=== PATIENT | female | born 1960 | race Caucasian/White ===

== ENCOUNTER 2025-07-25 10:15 | Outpatient (CLI) | payer OTHER, SELFPAY ==
--- OUTSIDE RECORDS SUMMARY | 2025-05-31 09:45 | XMS_ITS | Encounter Summary ---
Author Organization [facility] Address [address] [place] [address] Care Team Providers Care Aerodynamics Professor Name Role Phone Nicholas Mlaik MD Primary Care Provider [phone] Reason for Visit * Physical Therapy (Routine) - Authorization Not Needed Specialty Diagnoses / Procedures Referred By Contac t Referred To Contact Physical Therapy Diagnoses Spondylolisthesis of lumbar region Murtaza Warner MD [address] [place] [phone] Phone: tel: fax: [facility] [address] [address] Phone: tel: fax: Referral ID Status Reason Start Date Expiration Date Visits Requested Visits Authorized [id number] Authorization Not Needed 05/03/2025 08/31/2025 1 20 Encounter Details Date Type Department Care Team (Late st Contact Info) Description 05/31/2025 10:45 AM EDT Office Visit [facility] [address] [address] Robert Reyes, PT [address] [place] [address] Spondylolisthesis of lumbar region (Primary Dx) Social History Tobacco Use Types Packs/Day Years Used Date Smoking Tobacco: Every Day Cigarettes 0.6 51.6 Started: 1973; Last attempted to quit: 07/2020 Passive Smoke Exposure: Past Smokeless Tobacco: Never Comments: Smoking history updated per QT chart review 07/30/2024 Pt smokes 0.25. Patient states she started smoking at age 14 and at her heaviest smoked 1.5ppd. Patient states she quit 3 weeks ago around last hospitalization.08/02/19 Alcohol Use Standard Drinks/Week Comments No 0 (1 standard drink = 0.6 oz pur e alcohol) Overall Financial Resource Strain (CARDIA) Answe r Date Recorded How hard is it for you to pa y for the very basics like food, housing, medical care, and heating? Not very hard 02/15/2023 PHQ-2 Answer Date Recorded PHQ-2 Total Score 0 04/20/2024 [facility]at ional [facility] - Occupational Stress Questionnaire Answer Date Recorded Do you feel stress - tense, restless, nervous, or anxious, or unable to sleep at night because your mind is troubled all the time - these days? Only a little 04/03/2022 Exercise Vital Sign Answer Date Recorde d On average, how many days pe r week do you engage in moderate to strenuous exercise (like a brisk walk)? 0 days 02/15/2023 On average, how many minutes do you engage in exercise at this level? 0 min 02/15/2023 Hunger Vital Sign Answer Date Recorded Within the past 12 months, y ou worried that your food would run out before you got the money to buy more. Never true 02/16/20 23 Within the past 12 months, t he food you bought just didn't last and you didn't have money to get more. Never true 02/15/2023 PRAPARE - Transportation Answer Date Re corded In the past 12 months, has l ack of transportation kept you from medical appointments or from getting medications? No 01/30 In the past 12 months, has l ack of transportation kept you from meetings, work, or from getting things needed for daily living? No 02/15/2023 Comments No Sex and Gender Information Value Date Recorded Sex Assigned at Not on file Legal Sex Female 2:44 AM EDT Gender Identity Not on file Sexual Orientation Not on file documented as of this encounter Functional Status * Is the person deaf or does he/she have serious difficulty hearing? Answer Date of Assessment Author No 10/07/2022 9:07 AM EST Mcgill, A my, RMA * Is the person blind or does he/she have serious difficulty seeing even when wearing glasses? Answer Date of Assessment Author No 10/07/2022 9:07 AM EST Mcgill, A my, RMA * Does this person have serious difficulty walking or climbing stairs? Answer Date of Assessment Author No 10/07/2022 9:07 AM EST Mcgill, A my, RMA * Does this person have difficulty dressing or bathing? Answer Date of Assessment Author No 10/07/2022 9:07 AM EST Mcgill, A my, RMA * Because of a physical, mental or emotional condition, does this person have difficulty doing errands alone such as visiting a doctor's office or shopping? Answer Date of Assessment Author No 10/07/2022 9:07 AM EST Mcgill, A my, RMA documented as of this encounter Mental Status * Because of a physical, mental or emotional condition, does this person have serious difficulty concentrating, remembering or making decisions? Answer Entry Date Author No 10/07/2022 9:07 AM EST Mcgill, A my, RMA documented in this encounter Progress Notes * Jesus Garcia, MUSIC COPYIST - 05/31/2025 10:45 AM EDT Images from the original note were not included. Physical Therapy Daily Progress Note 05/31/2025 Morelia Viera : 1960 Referring Provider: Murtaza Warner MD Next MD visit: unk Encounter Diagnosis Name Primary? Spondylolisthesis of lumbar region Yes Surgery Date: na Onset date: chronic Contraindications/Precautions: none Visit: 12/19 Time In: 10:45a Time Out: 11:15a Subjective: Pt state sthat she is the same, not improving Se grid Treatment Treatment Date 05/10/2025 Date 05/17/2025 Date 05/24/2025 Date 05/31/2025 TA 5 15x 5 x15 5 x15 home bridge 5 15x 5 x15 5 x15 5 x15 LTR 10 x 5 ea 10 x 5 ea 10 x 5 ea ltr abs 2' ea knee to chest 10 x 5 ea 10 x5ea 10 x5ea 10 x5 seated october TA 20x2 20x2 20x2 20x2 hooklying clamshell org x30 hooklying clamshell org x30 hooklying clamshell light green x30 STS from elevated at table with TA 2x5 d/c pain seated pallof press light green x10ea st pallof press x20ea shoulder ext org 2x10 shoulder ext org 2x10 Modalities Measurements Charges eval te nmr te nmr te nmr te nmr HEP ID: Access Code: [email or web address] URL: [email or web address] Date: 05/10/2025 Prepared by: Lorenzo Reyes Exercises - Supine Transversus Abdominis Bracing - Hands on Stomach - 2 x daily - 7 x weekly - 15 reps - 5sechold - Supine Bridge - 2 x daily - 7 x weekly - 15 reps - 5sec hold - Hooklying Single Knee to Chest Stretch - 2 x daily - 7 x weekly - 5 reps - 10sec hold - Supine Lower Trunk Rotation - 2 x daily - 7 x weekly - 5 reps - 10sec hold - Seated October - 2 x daily - 7 x weekly - 30 reps Treatment today included: Timed Units: Therapeutic exercise: 15 minutes Neuromuscular Re-education: 15 minutes Total Time for Timed Treatments: 30 minutes Untimed Units: None Patient's Tolerance of Evaluation and/or Treatment: Fair Response to HEP instruction/patient education: The patient verbalized understanding and demonstrated independence with home exercise program. Assessment: Pt not improving with core stab exercises. Potential referral back to MD after next visit if pain continues Plan: Continue current plan of care. Signature: Jesus Garcia PTA Date: 05/31/2025 [place] License: [id number] documented in this encounter Plan of Treatment Not on file documented as of this encounter Goals Goal Patient Goal Type Associated Problems Recent Progress Patient-Stated? Author Blood Pressure < 140/90 Blood Pressure 152/70(2024 4:20 PM EDT) No Nicholas Malik MD Maintain a healthy diet, exercise regularly and maintain an ideal body weight General No Siomara Burger CCMA Stay Tobacco Free Lifestyle No Burger, Siomara Devora, CCMA documented as of this encounter Visit Diagnoses Diagnosis Spondylolisthesis of lumbar region- Primary Acquired spondylolisthesis documented in this encounter Care Teams Aerodynamics Professor Relationship Specialty Start Date End Date Nicholas Malik MD [address] [facility] [address] [place], [place] [address] PCP - General Family Medicine 01/14/23 07/19/25 documented as of this encounter
--- OUTSIDE RECORDS SUMMARY | 2025-06-07 09:45 | XMS_ITS | Encounter Summary ---
Author Organization [facility] Address [address] [place] [address] Care Team Providers Care Traffic Signal Supervisor Maintenance Name Role Phone Nicholas Malik MD Primary Care Provider [phone] Reason for Visit * Physical Therapy (Routine) - Authorization Not Needed Specialty Diagnoses / Procedures Referred By Contac t Referred To Contact Physical Therapy Diagnoses Spondylolisthesis of lumbar region Murtaza Warner MD [address] [place] [id number] Phone: tel: fax: [facility] [address] [address] Phone: tel: fax: Referral ID Status Reason Start Date Expiration Date Visits Requested Visits Authorized [id number] Authorization Not Needed 05/03/2025 08/31/2025 1 20 Encounter Details Date Type Department Care Team (Late st Contact Info) Description 06/07/2025 10:45 AM EDT Office Visit [facility] [address] [facility] [address] [place] [address] Robert Reyes, PT [address] [place] [address] Spondylolisthesis of lumbar region (Primary [...] Date Recorded PHQ-2 Total Score 0 04/20/2024 [facility] Occupat ional Health - Occupational Stress [...] documented in this encounter Progress Notes * Robert Reyes, PT - 06/07/2025 10:45 AM EDT Images from the original note were not included. Physical Therapy Daily Progress Note 06/07/2025 Morelia Viera : 1960 Referring Provider: Murtaza Warner MD Next MD visit: unk Encounter Diagnosis Name Primary? Spondylolisthesis of lumbar region Yes Surgery Date: na Onset date: chronic Contraindications/Precautions: none Visit: 01/18 Time In: 10:30a Time Out: 10:55a Subjective: Pt states that she is the same. Exercises are not helping. She is trying to do them as much as her pain allows See grid Treatment Treatment Date 05/17/2025 Date 05/24/2025 Date 05/31/2025 06/07/2025 TA 5 x15 5 x15 home bridge 5 x15 5 x15 5 x15 5 x15 LTR 10 x 5 ea 10 x 5 ea ltr abs 2' ea 10 x5ea knee to chest 10 x5ea 10 x5ea 10 x5 10 x5 seated october TA 20x2 20x2 20x2 hooklying clamshell org x30 hooklying clamshell org x30 hooklying clamshell light green x30 hooklying clamshell light green x30 STS from elevated at table with TA 2x5 d/c pain seated pallof press light green x10ea st pallof press x20ea st pallof press x20ea shoulder ext org 2x10 shoulder ext org 2x10 shoulder ext light green 2x10 Modalities Measurements Charges te nmr te nmr te nmr te nmr HEP ID: Access Code: [email or web address] URL: [email or web address] Date: 05/10/2025 Prepared by: Lorenzo Reyes Exercises [...] Units: Therapeutic exercise: 15 minutes Neuromuscular Re-education: 10 minutes Total Time for Timed Treatments: 25 minutes Untimed Units: None Patient's Tolerance of Evaluation and/or Treatment: Excellent Response to HEP instruction/patient education: The patient verbalized understanding and demonstrated independence with home exercise program. Assessment: Pt not making progress at this time despite consistent HEP and physical therapy. Pt hasfailed conservative management at this time and referred back to MD for further diagnostics at MD discretion. Plan: refer back to Signature: Robert Reyes PT Date: 06/07/2025 [place] License: [id number] documented in this encounter Plan of Treatment Not on file documented as of this encounter Goals Goal Patient Goal Type Associated Problems Recent Progress Patient-Stated? Author Blood Pressure < 140/90 Blood Pressure 152/70(2024 4:20 PM EDT) No Nicholas Malik MD Maintain a healthy diet, exercise regularly and maintain an ideal body weight General No Siomara Burger CCMA Stay Tobacco Free Lifestyle No Siomara Burger CCMA documented as of this encounter Visit Diagnoses Diagnosis Spondylolisthesis of lumbar region- Primary Acquired spondylolisthesis documented in this encounter Care Teams Traffic Signal Supervisor Maintenance Relationship Specialty Start Date End Date Nicholas Malik MD [address] [place] [address] [place] [address] PCP - General Family Medicine 01/14/23 07/19/25 documented as of this encounter
--- OUTSIDE RECORDS SUMMARY | 2025-06-13 15:00 | XMS_ITS | Encounter Summary ---
Author Organization [facility] Address [address] [id number] Care Team Providers Care Acid Remover Name Role Phone Nicholas Malik MD Primary Care Provider [phone] Reason for Referral * MRI/CAT Scan (Routine) - AFF Authorized Specialty Diagnoses / Procedures Referred By Tg mckee Referred To Contact Orthopedic Surgery Diagnoses Spondylolisthesis of lumbar region Degeneration of intervertebral disc of lumbar region with discogenic back pain Lumbar pain Procedures MRI LUMBAR SPINE WO CONTRAST Murtaza Warner MD [address] [place] [address] Phone: tel: fax: [facility] [address] [address] Phone: tel: fax: Referral ID Status Reason Start Date Expiration Date Visits Requested Visits Authorized [id number] AFF Authorized 06/13/2025 06/13/2026 1 1 Reason for Visit * Reason Comments Follow-up Encounter Details Date Type Department Care Team (Latest Contact Info) Description 06/13/2025 4:00 PM EDT [facility] Visit [facility] [address] [address] Murtaza Warner MD [address] [place] [address] Spondylolisthesis of lumbar region (Primary Dx); Degeneration of intervertebral disc of lumbar region with discogenic back pain; Lumbar pain Social History Tobacco Use Types Packs/Day Years [...] documented in this encounter Progress Notes * Murtaza Warner MD - 06/13/2025 4:00 PM EDT Images from the original note were not included. Murtaza Warner MD Sports Medicine and Asbestos Pipe Supervisor DATE OF VISIT: 06/13/25 CHIEF COMPLAINT Chief Complaint Patient presents with Lower Back - Follow-up HPI Follow-up on her back. Ongoing axial lumbosacral pain, chronic and worsening. No radiation into thelegs. I had ordered an MRI scan to plan interventional treatment however her insurance company denied it.She has completed her physical therapy without results PREVIOUS TREATMENT 05/10/2025 initial PT visit, multiple visits 01/29/2024 left sacroiliac joint injection, fluoroscopic guided PAST MEDICAL HISTORY Obesity Tobacco use Bilateral TKA COPD Vitamin D deficiency PHYSICAL EXAM Bilateral seated slump test cause axial low back pain Very limited lumbar range of motion RADIOLOGY/PROCEDURES 01/13/2024 4 view L-spine including flexion, extension x-rays: Moderate to advanced multilevel DDD with a listhesis 4/5 ASSESSMENT Chronic low back pain L DDD Lumbar spondylolisthesis PLAN Lumbar MRI with clinical follow-up, we will use that to plan intervention. DME Summary No orders found for display documented in this encounter Plan of Treatment [...] Burger CCMA documented as of this encounter Results * MRI LUMBAR SPINE WO CONTRAST (06/30/2025 12:00 PM EDT) Narrative [facility] - 06/30/2025 12:00 PM EDT Please see the scanned MRI report associated with this order on the Imaging tab of the patient's chart. Murtaza Warner MD IMG MRI ORDERABLES Final Result [facility] documented in this encounter Visit Diagnoses Diagnosis Spondylolisthesis of lumbar region- Primary Acquired spondylolisthesis Degeneration of intervertebral disc of lumbar region with discogenic back pain Lumbar pain Lumbago documented in this encounter Care Teams Acid Remover Relationship Specialty Start Date End Date Nicholas Malik MD [address] [place] [address] [address] [place], [place] [address] PCP - General Family Medicine 01/14/23 07/19/25 documented as of this encounter
--- OUTSIDE RECORDS SUMMARY | 2025-06-30 10:30 | XMS_ITS | Encounter Summary ---
Author Organization [facility] Address [address] [place] [address] Care Team Providers Care Mba Intern Name Role Phone Nicholas Malik MD Primary Care Provider [phone] Reason for Visit * MRI/CAT Scan (Routine) - AFF Authorized Specialty Diagnoses / Procedures Referred By Tg mckee Referred To Contact Orthopedic Surgery Diagnoses Spondylolisthesis of lumbar region Degeneration of intervertebral disc of lumbar region with discogenic back pain Lumbar pain Procedures MRI LUMBAR SPINE WO CONTRAST Murtaza Warner MD [address] [place] [address] Phone: tel: fax: [facility] [address] [place] [address] Phone: tel: fax: Referral ID Status Reason Start Date Expiration Date Visits Requested Visits Authorized [id number] AFF Authorized 06/13/2025 06/13/2026 1 1 Encounter Details Date Type Department Care Team (Late st Contact Info) Description 06/30/2025 11:30 AM EDT Ancillary Procedure [facility] [address] [place] [address] Murtaza Warner MD [address] [place] [address] Social History Tobacco Use Types Packs/Day Years [...] Date Recorded PHQ-2 Total Score 0 04/20/2024 [facility] of Occupat ional Health - Occupational Stress [...] A my, RMA documented in this encounter Plan of Treatment [...] Burger CCMA documented as of this encounter Procedures Procedure Name Priority Date/Time Associated Diagnosis Comments MRI LUMBAR SPINE WO CONTRAST Routine 06/30/2025 12:00 PM EDT Spondylolisthesis of lumbar region Degeneration of intervertebral disc of lumbar region with discogenic back pain Lumbar pain documented in this encounter Results * MRI LUMBAR SPINE WO CONTRAST (06/30/2025 12:00 PM EDT) Narrative [facility] - 06/30/2025 12:00 PM EDT Please see the scanned MRI report associated with this order on the Imaging tab of the patient's chart. us Murtaza Warner MD IMG MRI ORDERABLES Final Result Performing Organization Address City/State/[facility] Co de Phone Number [facility] documented in this encounter Visit Diagnoses Not on filedocumented in this encounter Care Teams Mba Intern Relationship Specialty Start Date End Date Nicholas Malik MD [address] [place] [address] [place] [address] PCP - General Family Medicine 01/14/23 07/19/25 documented as of this encounter
--- OUTSIDE RECORDS SUMMARY | 2025-06-30 12:00 | XMS_ITS | Encounter Summary ---
Author Organization [facility] Address [address] [place] [address] Care Team Providers Care Hearing Impaired Teacher Name Role Phone Nicholas Malik MD Primary Care Provider [phone] Reason for Referral * In Office Procedure (Routine) - Denied Specialty Diagnoses / Procedures Referred By Tg mckee Referred To Contact Orthopedic Surgery Diagnoses Spondylolisthesis of lumbar region Procedures [facility] PROCEDURE UNDER FLUORO Murtaza Warner MD [address] [place] [address] Phone: tel: fax: [facility] [address] [address] Phone: tel: fax: Referral ID Status Reason Start Date Expiration Date Visits Re quested Visits Authorized [id number] Denied 06/30/2025 06/30/2026 1 0 Reason for Visit * Reason Comments Results Encounter Details Date Type Department Care Team (Latest Contact Info) Description 06/30/2025 1:00 PM EDT Office Visit [facility] [address] [employer] [address] [address] Murtaza Warner MD [address] [place] [address] Spondylolisthesis of lumbar region (Primary Dx) Social [...] Date Recorded PHQ-2 Total Score 0 04/20/2024 [facility] of Occupat ional Health - Occupational [...] Date Author No 10/07/2022 9:07 AM EST Artem A my, RMA documented in this encounter Progress Notes * Murtaza Warner MD - 06/30/2025 1:00 PM EDT Images from the original note were not included. Murtaza Warner MD Sports Medicine and Certified Nurse Midwife DATE OF VISIT: 06/30/25 CHIEF COMPLAINT Chief Complaint Patient presents with Lower Back - Results HPI Had her MRI scan done just today. She is here today in follow-up. PREVIOUS TREATMENT 05/10/2025 initial PT visit, multiple visits 01/29/2024 left sacroiliac joint injection, fluoroscopic guided Prior ablation PAST MEDICAL HISTORY Obesity Tobacco use Bilateral TKA COPD Vitamin D deficiency PHYSICAL EXAM Deferred RADIOLOGY/PROCEDURES 06/30/2025 lumbar MRI, [facility]: Greatest finding is at L4-5 with mild listhesis, moderate facet arthritis. Multilevel DDD 01/13/2024 4 view L-spine including flexion, extension x-rays: Moderate to advanced multilevel DDD with a listhesis 4/5 ASSESSMENT Chronic low back pain L DDD Lumbar spondylolisthesis, L4-5 PLAN Proceed with translaminar L4/5, 5 inch needle. She may need an ablation if this does not help. DME Summary No orders found for display [...] Primary Acquired spondylolisthesis documented in this encounter Orders Nursing Count Last Ordered Date First Orde red Date [facility] PROCEDURE UNDER FLUORO 1 025 documented in this encounter Care Teams Hearing Impaired Teacher Relationship Specialty Start Date End Date Nicholas Malik MD [address] [place] [address] [address] [place], [place] [address] PCP - General Family Medicine 01/14/23 07/19/25 documented as of this encounter
[2025-07-25 16:12] LABS: Hematocrit 42.1 % (37.0-47.0); Hemoglobin 13.5 g/dL (12.2-16.2); Immature Granulocytes % 1.9 %; Mean Corpuscular HGB Conc 32.1 g/dL (31.8-35.4); Mean Corpuscular Hemoglobin 30.5 pg (27.0-31.2); Mean Corpuscular Volume 95.2 fl (81-99); Nucleated Red Blood Cells % 0 %; Platelet Count 349 K/mm3 (142-424); Red Blood Count 4.42 M/mm3 (4.20-5.40); Red Cell Distribution Width-SD 47.2 fL; White Blood Count 13.2 K/mm3 (4.8-10.8)
[2025-07-25 16:51] LABS: Albumin Level 3.8 g/dl (3.5-5.0); Chloride 99 mmol/L (98-107); Potassium 3.6 mmoL/L (3.5-5.1); Sodium 141 mmol/L (136-145)
[2025-07-25 16:53] LABS: Blood Urea Nitrogen 18 mg/dl (7-17); Creatinine,Serum 0.90 mg/dl (0.52-1.04); Estimated Glomerular Filt Rate 63 ml/min (>60); GFR (African American) 76 ML/MIN (>60)
[2025-07-25 16:54] LABS: Alanine Aminotransferase 25 U/L (12-78); Albumin/Globulin Ratio 1.3 (1.1-1.8); Alkaline Phosphatase 111 U/L (38-126); Anion Gap 11.6 mEq/L (5-15); Aspartate Amino Transferase 23 U/L (14-36); Bilirubin,Total 0.3 mg/dl (0.2-1.3); Calcium 9.2 mg/dl (8.4-10.2); Carbon Dioxide 34 mmol/L (22.0-30.0); Cholesterol 121 mg/dl (140-200); Globulin 3.0 g/dL (1.3-3.2); Glucose 102 mg/dl (74-100); Total Protein,Serum 6.8 g/dl (6.3-8.2); Triglycerides 81 mg/dl (30-150)
[2025-07-25 16:55] LABS: HDL Cholesterol 52 mg/dl (40-60)
[2025-07-25 17:09] LABS: Hemoglobin A1C 6.2 % (4.0-6.0)
[2025-07-25 17:12] LABS: T4 (Thyroxine) 10.6 ug/dl (5.53-11.0)
[2025-07-25 17:25] LABS: Thyroid Stimulating Hormone 1.55 uIU/mL (0.465-4.68)
[2025-07-25 18:35] LABS: 25-OH Vitamin D, Total 29.7 ng/mL (30-100)
--- OUTSIDE RECORDS SUMMARY | 2025-07-26 08:22 | XMS_ITS | Encounter Summary ---
Author Organization [facility] Address [address] [place] [address] Care Team Providers Care Project Analyst Name Role Phone Nicholas Malik MD Primary Care Provider [phone] Encounter Details Date Type Department Care Team (Late st Contact Info) Description 05/04/2025 Telephone [facility] [address] [place] [address] Murtaza Warner MD [address] [place], [place] [id number] Social History Tobacco Use Types Packs/Day Years [...] Date Recorded PHQ-2 Total Score 0 04/20/2024 [facility] of Occupat ional Health - Occupational Stress [...] of Assessment Author No 10/07/2022 9:07 AM Fabio Prince RMA * Is the person blind or does he/she have serious difficulty seeing even when wearing glasses? Answer Date of Assessment Author No 10/07/2022 9:07 AM Fabio Prince, RMA * Does this person have serious difficulty walking or climbing stairs? Answer Date of Assessment Author No 10/07/2022 9:07 AM Fabio Prince RMA * Does this person have difficulty dressing or bathing? Answer Date of Assessment Author No 10/07/2022 9:07 AM Fabio Prince, RMA * Because of a physical, mental or emotional condition, does this person have difficulty doing errands alone such as visiting a doctor's office or shopping? Answer Date of Assessment Author No 10/07/2022 9:07 AM Fabio Prince RMA documented as of this encounter Mental Status * Because of a physical, mental or emotional condition, does this person have serious difficulty concentrating, remembering or making decisions? Answer Entry Date Author No 10/07/2022 9:07 AM Fabio Prince RMA documented in this encounter Miscellaneous Notes * Telephone Encounter - Dasha Benítez, Clerical Staff - 05/04/2025 8:40 AM EDT CALLED SPOKE WITH PATIENT, LET HER KNOW THAT SHE NEEDS TO GO TO PHYSICAL THERAPY ONCE A WEEK FOR SIX WEEKS THEN REACH OUT TO US WHEN THAT IS COMPLETED SO WE CAN RESUBMIT MRI TO INSURANCE. * Telephone Encounter - Tresa Goff, Clerical Staff - 05/04/2025 8:36 AM EDT Pt said she can only go to PT 1 x/week or she is not going to be able to walk. She wanted to know if Ins would be ok her going 1x a week for 6 wks so she can get an MRI after that. Please advise documented in this encounter Plan of Treatment [...] documented as of this encounter Visit Diagnoses Not on filedocumented in this encounter Care Teams Project Analyst Relationship Specialty Start Date End Date Nicholas Malik MD [address] [place] [address] [address] [place], [place] [address] PCP - General Family Medicine 01/14/23 07/19/25 documented as of this encounter
--- OUTSIDE RECORDS SUMMARY | 2025-07-26 08:23 | XMS_ITS | Encounter Summary ---
Author Organization [facility] Address [address] [place] [address] Care Team Providers Care Director Advanced Name Role Phone Nicholas Malik MD Primary Care Provider [phone] Reason for Visit * Reason Onset Date Comments Prior Authorization 07/05/2025 Encounter Details Date Type Department Care Team (Late st Contact Info) Description 07/05/2025 Telephone [facility] [address] [place] [address] Murtaza Warner MD [address] [place] [address] Prior Authorization Social History Tobacco Use Types Packs/Day Years [...] Date Recorded PHQ-2 Total Score 0 04/20/2024 [facility] - Occupational Stress [...] Prince RMA * Does this person have serious difficulty walking or climbing stairs? Answer Date of Assessment Author No 10/07/2022 9:07 AM Fabio Prince RMA * Does this person have difficulty dressing or bathing? Answer Date of Assessment Author No 10/07/2022 9:07 AM Fabio Prince RMA * Because of a physical, mental or emotional condition, does this person have difficulty doing errands alone such as visiting a doctor's office or shopping? Answer Date of Assessment Author No 10/07/2022 9:07 AM HUI McgillFabio my, RMA documented as of this encounter Mental Status * Because of a physical, mental or emotional condition, does this person have serious difficulty concentrating, remembering or making decisions? Answer Entry Date Author No 10/07/2022 9:07 AM HUI McgillFabio my, RMA documented in this encounter Miscellaneous Notes * Telephone Encounter - Dasha Benítez, Clerical Staff - 07/05/2025 8:12 AM ESTSummary: ALISTAIR Denial Called spoke with patient. She is scheduled for a bilateral L4/5 translaminar ALISTAIR on 07/07/2025. [facility] is denying her injection due her note not saying how far her pain goes. Patient informs me that her pain goes from her low back to her upper thigh just below her butt cheek. I told her that I will resubmit to her insurance and we will go from there. Patient did complete 5 weeks of physical therapy, she was discharged due to not making progress at this time despite consistent HEP and physical therapy. Patient has failed conservative management at this time and referred back to MD for further diagnostics at MD discretion. documented in this encounter Plan of Treatment [...] on filedocumented in this encounter Care Teams Director Advanced Relationship Specialty Start Date End Date Nicholas Malik MD [address] [place] [address] [place] [address] PCP - General Family Medicine 01/14/23 07/19/25 documented as of this encounter
--- OUTSIDE RECORDS SUMMARY | 2025-07-26 08:23 | XMS_ITS | Encounter Summary ---
Author Organization [place] [address] Care Team Providers Care Spanish Moss Picker Name Role Phone Buck Snyder MD Primary Care Provider Jason Valencia MD Primary Care Provider Unavail able Rafaela Mandujano RN Unavailable Rafaela Shabazz RN Unavailable Kinza Shen Unavailable Unavailable Natalya Lopez Unavailable Unavailable Kinza Booth Unavailable Unavailable Nicholas Malik MD Primary Care Provider [phone] Reason for Visit * Reason Onset Date Comments Bone Health Program 10/30/2017 Encounter Details Date Type Department Care Team (Late st Contact Info) Description 10/30/2017 Patient Outreach [facility] [address] [place] [address] Buck Snyder MD Bone Health Program Social History Tobacco Use Types Packs/Day Years Used Date Smoking Tobacco: Every Day Cigarettes 0.5 20 Smokeless Tobacco: Never Alcohol Use Standard Drinks/Week Comments No 0 (1 standard drink = 0.6 oz pur e alcohol) Comments No Sex and Gender Information Value Date Recorded Sex Assigned at Not on file Legal Sex Female 2:44 AM EDT Gender Identity Not on file Sexual Orientation Not on file documented as of this encounter Miscellaneous Notes * Telephone Encounter - Lynette Barros, Clerical Staff - 10/30/2017 11:28 AM EST We were unable to contact patient about scheduling a bone density study.sent letter documented in this encounter Plan of Treatment Not on file documented as of this encounter Goals Goal Patient Goal Type Associated Problems Recent Progress Patient-Stated? Author Maintain a healthy diet, exercise regularly and maintain an ideal body weight General No Siomara Burger CCMA Stay Tobacco Free Lifestyle No Siomara Burger CCMA documented as of this encounter Visit Diagnoses Not on filedocumented in this encounter Additional Health Concerns Infection Onset Date Last Indicated Resolved Time R/O COVID-19 04/20/2022 04/20/2022 04/20/2022 6:34 AM EDT R/O COVID-02/15/2023 02/15/2023 02/15/2023 3:37 PM EDT COVID-02/15/2023 02/15/2023 03/07/2023 10:1 2 PM EDT documented as of this encounter Care Teams Spanish Moss Picker Relationship Specialty Start Date End Date Buck Snyder MD PCP - General Family Medicine 01/24/16 03/24/18 Jason Pascal MD PCP - General Family Medicine 03/25/18 01/13/23 Nicholas Malik MD [address] [place] [address] [place] [address] PCP - General Family Medicine 01/14/23 07/19/25 Rafaela Mandujano, [employer] Glass Polisher Registered Nurse 06/29/19 07/25/19 Rafaela Mandujano, [employer] Glass Polisher Registered Nurse 07/28/19 10/11/19 Kinza Booth Respiratory Therapist Respiratory Therapist, Registered 04/03/22 04/03/22 Natalya Lopez Case Babbitt Spinner 04/03/22 05/01/22 Kinza Booth Respiratory Therapist Respiratory Therapist, Registered 04/22/22 06/10/22 documented as of this encounter
--- OUTSIDE RECORDS SUMMARY | 2025-07-26 08:23 | XMS_ITS | Encounter Summary ---
Author Organization [place] [address] Care Team Providers Care Silviculture Forester Name Role Phone Nicholsa Malik MD Primary Care Provider [phone] Reason for Visit * Reason Onset Date Comments Medication Refill [facility] Patient [facility] Outreach 07/17/2025 med refill 30 Encounter Details Date Type Department Care Team (Late st Contact Info) Description 07/17/2025 Refill [facility] [address] [place] [id number] Nicholas Malik MD [address] [place] [address] [place] [address] Medication Refill; Central Patient Navigator Outreach (med refill 30) Social History Tobacco Use Types Packs/Day Years [...] Date Recorded PHQ-2 Total Score 0 04/20/2024 [facility] - Occupational Stress Questionnaire Answer Date Recorded [...] Assessment Author No 10/07/2022 9:07 AM EST Fabio Mcgill RMA documented as of this encounter Mental Status * Because of a physical, mental or emotional condition, does this person have serious difficulty concentrating, remembering or making decisions? Answer Entry Date Author No 10/07/2022 9:07 AM Fabio Prince RMA documented in this encounter Ordered Prescriptions Prescription Sig Dispense Quantity Refills Last Filled Start Date End Date pantoprazole (PROTONIX) 40 mg Oral Tablet, Delayed Release (E.C.)Indications:G astroesophageal reflux disease, unspecified whether esophagitis present TAKE 1 TABLET BY MOUTH EVERY DAY 30 Tablet 07/20/2025 documented in this encounter Miscellaneous Notes * Telephone Encounter - Shelbie Jaramillo - 07/20/2025 9:09 AM EST Patient Outreach: Medication refill appointment, ilene count: Med Refill 30 Primary Care Attempt Count: 1st Care Gaps Addressed youth liaison officer: Annual Wellness Visit and Flu Shot Outcome: Sees PCP outside of [facility]. Encouraged Pt to update info with insurance. [facility] Provider removedfrom chart. Call back number: [phone] * Telephone Encounter - Stacia Luna CPhT - 07/20/2025 7:54 AM EST pantoprazole Future Visit: na Last Assessed Visit: na Follow-Up: [facility] Appointment protocol failed. One ilene supply sent to pharmacy. Routed to Patient Navigators. documented in this encounter Plan of Treatment Not on file documented as of this encounter Goals Goal Patient Goal Type Associated Problems Recent Progress Patient-Stated? Author Blood Pressure < 140/90 Blood Pressure 152/70(2024 4:20 PM EDT) No Nicholas Malik MD Maintain a healthy diet, exercise regularly and maintain an ideal body weight General No Siomara Burger CCMA Stay Tobacco Free Lifestyle No Jennyfer Siomara Devora, CCMA documented as of this encounter Visit Diagnoses Diagnosis Gastroesophageal reflux disease, unspecified whether esophagitis present documented in this encounter Discontinued Medications Medication Sig Discontinue Reason Start Date End Da te pantoprazole (PROTONIX) 40 mg Oral Tablet, Delayed Release (E.C.)Indications:Gastroe sophageal reflux disease, unspecified whether esophagitis present TAKE 1 TABLET BY MOUTH EVERY DAY 04/11/2025 07/20/2025 documented as of this encounter Care Teams Silviculture Forester Relationship Specialty Start Date End Date Nicholas Malik MD [address] [place] [address] [address] [place], [place] [address] PCP - General Family Medicine 01/14/23 07/19/25 documented as of this encounter
--- OUTSIDE RECORDS SUMMARY | 2025-07-26 08:23 | XMS_ITS | Clinical Summary ---
Author Organization [facility] Address [address] [place] [address] Phone Care Team Providers Care Manager Competitive Intelligence Name Role Phone Unavailable Primary Care Provider Unavailabl e Allergies Active Allergy Reactions Criticality Noted Date Comments Aspirin Rash 03/18/2016 nauseated GERD Codeine Itching,Nausea Only,Rash,Hives 12/18/2015 Nsaids (Non-Steroidal Anti-Inflammatory Drug) Nausea Only 12/18/2015 Aspirin and Ibuprofen GERD Tramadol Nausea Only,Rash 12/18/2015 GERD Medications nalOXone (NARCAN) 4 mg/actuation Nasl [place], Non-Aerosol 0.1 mL by INTRANASAL route as needed for Opioid Reversal. 1 Each 023 Active albuterol (PROVENTIL) 2.5 mg /3 mL (0.083 %) Inhl Solution for NebulizationIndic ations:COPD, moderate (HCC) Take 3 mL by nebulization every 4 hours as needed for Wheezing. 180 mL 2 023 Active umeclidinium-zaki nteroL (ANORO ELLIPTA) 62.5-25 mcg/actuation Inhl Disk with DeviceIndications :COPD, moderate (HCC) INHALE 1 PUFF BY MOUTH EVERY DAY 180 Each 024 Active albuterol (PROVENTIL HFA;VENTOLIN HFA) 90 mcg/actuation Inhl HFA Aerosol InhalerIndication s:COPD, moderate (HCC) Inhale 2 Puffs into the lungs every 4 hours as needed for Wheezing. 18 Each 2 024 Active doxepin (SINEQUAN) 10 mg Oral Capsule Take 10 mg by mouth nightly. 025 Active hydrOXYzine (VISTARIL) 25 mg Oral Capsule Take 25 mg by mouth 3 times daily as needed. 025 Active buprenorphine-nal oxone (SUBOXONE) 4-1 mg SL Film PLEASE SEE ATTACHED FOR DETAILED DIRECTIONS 025 Active fUROsemide (LASIX) 20 mg Oral TabletIndications :Left leg swelling Take 1 Tablet by mouth daily as needed. 30 Tablet 11 025 Active atorvastatin (LIPITOR) 20 mg Oral TabletIndications :Mixed hyperlipidemia TAKE 1 TABLET BY MOUTH EVERY DAY 100 Tablet 2 025 Active valsartan (DIOVAN) 160 mg Oral TabletIndications :Essential hypertension TAKE 1 TABLET BY MOUTH EVERY DAY 100 Tablet 2 025 Active pantoprazole (PROTONIX) 40 mg Oral Tablet, Delayed Release (E.C.)Indications :Gastroesophageal reflux disease, unspecified whether esophagitis present TAKE 1 TABLET BY MOUTH EVERY DAY 30 Tablet 025 Active pantoprazole (PROTONIX) 40 mg Oral Tablet, Delayed Release (E.C.)Indications :Gastroesophageal reflux disease, unspecified whether esophagitis present TAKE 1 TABLET BY MOUTH EVERY DAY 100 Tablet 025 2024 Discontinued Active Problems Patient Care Coordination No te Formatting of this note migh t be different from the original. SEP PUSHPA: 04/30/2021 No Show SEP pushpa with tls 04[facility]01[facility]20[facility]. Warning Letter Mailed tls 06/11/2022 Warning letter of inconsistent Urine Drug Screen for Marijuana per Dr[facility] Pas[facility] 11/06/3022 Patient dismissed from [facility] due to multiple inconsistent UDS. Certified letter mailed. tls [facility] Controlled Substance Protocol Completed: A. Informed Consent Statement signed (ONCE) 02/21/16 B. Controlled Substance Agreement signed (ONCE) 02/21/16 C. Comprehensive Urine Drug Screen was performed (YEARLY) 01/02/17 D. Matt report completed (EVERY 3 MONTHS) 12/30/16 E. Screening tool for addiction (SOAPP) completed (YEARLY) 02/21/16 F. Need for controlled substance is documented (EVERY VISIT) G. Pain Scale and or Functional capacity documented (EVERY VISIT) 06/04/22 uds + thc SEP / [place] 08/02/22 matt [phone] [place]. tye perez 06/04 Problem Noted Date Diagnosed Date Spondylolisthesis of lumbar region 05/10/2025 Cigarette nicotine dependenc e with nicotine-induced disorder 01/18/2025 Lymphedema of both lower extremities 01/18/2025 Venous insufficiency of both lower extremities 0 01/18/2025 Mixed hyperlipidemia 12/21/2024 Assessment & Plan (12/21/2024 10:52 AM EDT): Primary localized osteoarthritis of left knee Primary localized osteoarthritis of left hip Essential hypertension 01/14/2023 Assessment & Plan (12/21/2024 10:52 AM EDT): Orders: OLENA BP FLOWSHEET Generalized anxiety disorder 01/14/2023 Cigarette smoker 10/07/2022 COPD, moderate 02/01/2020 Assessment & Plan (12/21/2024 10:52 AM EDT): Anxiety 07/26/2019 Spinal stenosis of lumbar region 05/18/2019 Lumbar spondylosis 05/18/2019 Status post total right knee replacement 017 DDD (degenerative disc disease), lumbar 01/24/20 16 Vitamin D deficiency 01/24/2016 Primary osteoarthritis of left knee 01/24/2016 Tobacco abuse 01/24/2016 Gastroesophageal reflux disease without esophagi tis 01/24/2016 H/O total hysterectomy Resolved Problems Problem Noted Date Diagnosed Date Resolved Date COVID-19 virus infection 02/15/2023 Assessment & Plan (02/24/2023 8:32 AM EDT): Recovering. Oxygen sats good today. Lung exam clear. Elevated troponin 02/15/2023 12/21/2024 Assessment & Plan (02/24/2023 8:31 AM EDT): Pattern not consistent with ACS. Strong family history of CAD Recommended stress test - will order. 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 [address] Nicholas Malik MD Medication Refill; Central Patient Navigator Outreach (med refill 30) 07/06/2025 Telephone [place] [phone] Murtaza Warner MD 07/05/[address] [address] Murtaza Warner MD Prior Authorization 06/30/2025 1:00 PM EDT Office Visit [facility] [address] [address] Murtaza Warner MD Spondylolisthesis of lumbar region (Primary Dx) 06/30/2025 11:30 AM EDT Ancillary Procedure [facility] [address] [address] Murtaza Warner MD 06/13/2025 4:00 PM EDT Office Visit [facility] [address] [address] Murtaza Warner MD Spondylolisthesis of lumbar region (Primary Dx); Degeneration of intervertebral disc of lumbar region with discogenic back pain; Lumbar pain 06/07/2025 10:45 AM EDT Office Visit [facility] [address] [place] [address] Robert Reyes, PT Spondylolisthesis of lumbar region (Primary Dx) 05/31/2025 10:45 AM EDT Office Visit [facility] [address] [place] [address] Robert Reyes, PT Spondylolisthesis of lumbar region (Primary Dx) 05/24/2025 10:45 AM EDT Office Visit [facility] [address] [place] [address] Robert Reyes, PT Spondylolisthesis of lumbar region (Primary Dx) 05/17/2025 10:45 AM EDT Office Visit [facility] [address] [place] [phone] Robert Reyes, PT Spondylolisthesis of lumbar region (Primary Dx) 05/10/2025 11:00 AM EDT Office Visit [facility] [address] [place] [address] Robert Reyes, PT Spondylolisthesis of lumbar region (Primary Dx) 05/10/2025 Plan of Care Documentation [facility] [address] [address] 05/04/[address] [address] Murtaza Warner MD 05/03/[address] [address] Murtaza Warner MD Advice Only 05/03/2025 Orders Only [address] [address] Murtaza Warner MD Spondylolisthesis of lumbar region (Primary Dx) 04/28/2025 Refill [facility] [place] [facility] [address] [place] [address] Tyson Malik MD Medication Refill 04/26/2025 2:15 [place] [address] Murtaza Warner MD Degeneration of intervertebral disc of lumbar region with discogenic back pain (Primary Dx); Spondylolisthesis of lumbar region; Lumbar pain from Last 3 Months Immunizations Immunization Administration Dates Next Due Influenza Nasal, Unspecified Formulation 05/04/2021 Influenza Patient Reported 05/03/2021 Influenza Vaccine Quadrivalent PF 05/10/2022,10/2020 Influenza Vaccine, Unspecifi ed Formulation 05/10/2022 Influenza Virus Vaccine Quad rivalant, Flublok 06/30/2020,07/26/2019 Pfizer SARS-CoV-2 Bivalent B ooster Vaccine 12+ Years ([place]) 11/07/2022 Pfizer SARS-CoV-2 Vaccine 12 + Yrs (Purple Cap) 08/27/2021,02/09/2021,01/19/2021,01/19 Pneumococcal Polysaccharide 23 Valent 07/26/2019 Tdap 05/10/2022 Zoster Recombinant 05/10/2022,05/24/2021 Surgical History Surgery Date Site/Laterality Comments HYSTERECTOMY SECTION CHOLECYSTECTOMY TOOTH EXTRACTION KNEE ARTHROSCOPY 03/18/2016 Knee/Right RIGHT KNEE ARTHROSCOPY PARTIAL LATERAL AND MEDIAL MENISECTOMIES CHONDROPLASTY INTERNAL FIXATION OF INSUFFICIENCY FRACTURE OF LATERAL TIBIAL PLATEAU ; Surgeon: Chet Vinson MD; Location: [facility] MAIN OR; Service: Orthopedics Medical devices from this surgery are in the Medical Devices section. TOTAL KNEE ARTHROPLASTY 07/09/2017 Right RIGHT TOTAL KNEE ARTHROPLASTY ; Surgeon: Everton Majano MD; Location: [facility] MAIN OR; Service: Orthopedics Medical devices from this surgery are in the Medical Devices section. TOTAL KNEE ARTHROPLASTY 10/02/2023 - 10/30/2023 Left Medical History Medical History Date Comments Heartburn Arthritis ddd and degenera tive arthritis COPD (chronic obstructive pu lmonary disease) (HCC) Family History Medical History Relation Name Comments Diabetes Brother Heart Disease Brother CABG at age 42 and at age 46 Diabetes Father Heart Disease Father Cancer Mother leukemia at age 28 Relation Name Status Comments Brother Father Alive Mother Social History Tobacco Use Types Packs/Day Years [...] Date Recorded PHQ-2 Total Score 0 04/20/2024 [facility] - Occupational [...] on file Sexual Orientation Not on file Obstetrics History Para Term AB IAB SAB Ectopic Multiple Livin g Live Births 3 Last Filed Vital Signs Vital Sign Reading Time Taken Comments Blood Pressure 152/70 01/18/2025 4:20 PM EDT Pulse 77 01/18/2025 4:16 PM EDT Temperature 36.5 C (97.7 F) 01/18/2025 4:16 PM EDT Respiratory Rate 16 12/21/2024 10:36 AM EDT Oxygen Saturation 97% 12/21/2024 10:36 AM EDT Inhaled Oxygen Concentration - - Weight 122.5 kg (270 lb) 03/31/2025 11:21 AM EDT Height 162.6 cm (5' 4 ) 03/31/2025 11:21 AM EDT Body Mass Index 46.35 03/31/2025 11:21 AM EDT Plan of Treatment Health Maintenance Due Date Last Done Comments Cologuard 2006 FIT 2006 Sigmoidoscopy 2006 Virtual Colonography 2006 RSV or 60+ (1 - Risk 50-74 years 1-dose series) 2011 Pneumococcal Vaccine 50+ (2 of 2 - PCV) 07/26/2020 07/26/2019 Annual Wellness Exam 04/20/2025 04/20/2024, 10/29/2019, 01/24/2016 COVID-19 Vaccine ( season) 2025 11/07/2022, 08/27/2021, 02/09/2021, Additional history exists Influenza Vaccine (#1) 2025 2, 05/10/2022, 05/04/2021, Additional history exists Low Dose Lung Cancer Screening 01/07/2026 01/07/2025, 06/29/2022, 04/06/2020 Breast Cancer Screening 04/20/2026 04/20/20 24, 02/21/2022, 01/20/2020 Colon Cancer Screening 10/29/2029 Colonoscopy 10/29/2029 10/29/2019 DTaP/TDaP/Td (2 - Td or Tdap) 05/10/2032 05/10/2022 Zoster Completed 05/10/2022, 05/24/2021 Hepatitis C Screening Completed 04/23/2024, 020 Hepatitis B Vaccine Aged Out No longe r eligible based on patient's age to complete this topic Meningococcal B Vaccine Aged Out No l onger eligible based on patient's age to complete this topic Goals Goal Patient Goal Type Associated Problems Recent Progress Patient-Stated? Author Blood Pressure < 140/90 Blood Pressure 152/70(2024 4:20 PM EDT) No Nicholas Malik MD Maintain a healthy diet, exercise regularly and maintain an ideal body weight General No Siomara Burger CCMA Stay Tobacco Free Lifestyle No Siomara Burger CCMA Medical Devices Implanted Type Area Paint Factory Worker Device Identifier Shelf Expiration Date Model / Serial / Lot Kit Scp Knee Complete W/Accuport Side Delivery Cannula - [id number] Implanted:Qty: 1 on 03/18/2016 by Chet Vinson MD at [facility] Right: Knee NARCISO:NARCISO 12/04/2018 [id number] / / [id number] Cement-Palacos R - [id number] Implanted:Qty: 1 on 07/09/2017 by Everton Majano MD at [facility] Right: Knee NARCISO:NARCISO 02/28/2022 1112-140-0 / / [id number] Cement-Palacos R - [id number] Implanted:Qty: 1 on 07/09/2017 by Everton Majano MD at [facility] Right: Knee NARCISO:NARCISO 02/28/2022 1112-140-0 / / [id number] Extension Stem Persona Tapered Cemented 14mm +30 - [id number] Implanted:Qty: 1 on 07/09/2017 by Everton Majano MD at [facility] Right: Knee NARCISO:NARCISO 05/31/2027 42-5570-00 1-14 / / [id number] Patella All Poly Cemented Persona 32mm 8.5mm Thickness - [id number] Implanted:Qty: 1 on 07/09/2017 by Everton Majano MD at [facility] Right: Knee NARCISO:NARCISO 01/29/2025 42-5400-00 0- [id number] Femur Tm Persona Cr Standard Cemented Right Size 7 - [id number] Implanted:Qty: 1 on 07/09/2017 by Everton Majano MD at [facility] Right: Knee NARCISO:NARCISO 05/01/2027 42-5026-06 2- [id number] Component Tibia Cemented Stemmed Persona 5 Degree Rgt Size E - [id number] Implanted:Qty: 1 on 07/09/2017 by Everton Majano MD at [facility] Right: Knee NARCISO:NARCISO 12/29/2026 [id number] 1 [id number] Surface Artic Vit E Persona Mc Left 10mm/E-F Femur/Cr Sz 6-7 - [id number] Implanted:Qty: 1 on 07/09/2017 by Everton Majano MD at [facility] Right: Knee NARCISO:NARCISO 05/01/2022 [id number] 7 [id number] Procedures Procedure Name Priority Date/Time Associated Diagnosis Comments MRI LUMBAR SPINE WO CONTRAST Routine 06/30/2025 12:00 PM EDT Spondylolisthesis of lumbar region Degeneration of intervertebral disc of lumbar region with discogenic back pain Lumbar pain CT LUNG CANCER SCREENING LOW DOSE Routine 01/07/2025 6:32 AM EDT History of smoking 30 or more pack years HCV ANTIBODY SCREEN W/ REFLEX Routine 04/23/2024 8:44 AM EDT Need for prophylactic chemotherapy MM MAMMO DIGITAL RAVEN SCREEN BILAT Routine 04/20/2024 11:12 AM EDT Encounter for screening mammogram for malignant neoplasm of breast from Last 3 Months or Most Recently Relevant to Health Maintenance Results * MRI LUMBAR SPINE WO CONTRAST (06/30/2025 12:00 PM EDT) Narrative [facility] - 06/30/2025 12:00 PM EDT Please see the scanned MRI report associated with this order on the Imaging tab of the patient's chart. us Murtaza Warner MD IMG MRI ORDERABLES Final Result [facility] * CT LUNG CANCER SCREENING LOW DOSE (01/07/2025 6:32 AM EDT) Anatomical Region Laterality Modality Lung Computed Tomogra phy 01/07/2025 6:32 AM EDT Impressions 01/07/2025 7:09 AM EDT Unremarkable low-dose screening chest CT. RECOMMENDATION: Low Dose CT - 1 Yr A summary letter communicating these results will be mailed to the patient's address of record. - Note: Radiology results need to be interpreted within a comprehensive clinical context. If you have questions about the radiology report, please contact the office of the ordering clinician. [email or web address] Narrative 01/07/2025 7:[address] LUNG CANCER SCREENING LOW DOSE 01/07/2025 6:32 AM CLINICAL HISTORY: Asymptomatic patient meeting NCCN high risk criteria for lung screening. Z87.891-Personal history of nicotine [id number]. COMPARISON: 06/29/2022 and 04/06/2020 PROCEDURE COMMENTS: Noncontrast, low-dose, multidetector CT chest per department protocol. Interactive 3-D postprocessing done by the reviewing physician on a SYNGO workstation, using Maximum intensity projections (MIPS) and Reachpod - Inovaktif Bilisim LUNG CAD for improved lesion detection. [place] images archived to PACS. Dose 1 : CT DLP Total : 124.48 mGycm DLP Spiral Max : 121.38 mGycm Maximum CTDI Vol : 3.99 mGy FINDINGS: No suspicious pulmonary nodule. Evidence of old granulomatous disease. No acute inflammatory process. Heart and mediastinum unremarkable. Bilateral low-density adrenal nodules again noted unchanged and consistent with adenomas. Coronary artery calcification: Moderate. FOLLOW-UP CODE: Lung-RADS Category 1: Negative: No nodule or definitely benign nodule(s). Continued [place] L[place] S[place]ENING [place] [place] [address] suggested if age <78. Lung-RADS Modifier N/A: No Modifier Needed Procedure Note Gregorio Casanova MD - 01/07/2025 CT LUNG CANCER SCREENING LOW DOSE 01/07/2025 6:32 AM CLINICAL HISTORY: Asymptomatic patient meeting NCCN high risk criteria forlung screening. Z87.891-Personal history of nicotine bydqznaipr-ZLB-68-CM. COMPARISON: 06/29/2022 and 04/06/2020 PROCEDURE COMMENTS: Noncontrast, low-dose, multidetector CT chest perdepartment protocol. Interactive 3-D postprocessing done by the reviewing physicianon a Reachpod - Inovaktif Bilisim workstation, using Maximum intensity projections (MIPS) and Silentium CAD for improved lesion detection. [place] images archived to PACS. Dose 1 : CT DLP Total : 124.48 mGycm DLP Spiral Max : 121.38 mGycm Maximum CTDI Vol : 3.99 mGy FINDINGS: No suspicious pulmonary nodule. Evidence of old granulomatous disease. No acute inflammatory process. Heart and mediastinumunremarkable. Bilateral low-density adrenal nodules again noted unchanged and consistentwith adenomas. Coronary artery calcification: Moderate. FOLLOW-UP CODE: Lung-RADS Category 1: Negative: No nodule or definitelybenign nodule(s). Continued AN[place]AL L[place]-DOSE SCREENING [place] [place] [id number]suggested if age <78. Lung-RADS Modifier N/A: No Modifier Needed IMPRESSION: Unremarkable low-dose screening chest CT. RECOMMENDATION: Low Dose CT - 1 Yr A summary letter communicating these results will be mailed to thepatient's address of record. - Note: Radiology results need to be interpreted within a comprehensiveclinical context. If you have questions about the radiology report, please contactthe office of the ordering clinician. [email or web address] Nicholas Malik MD [facility] [place] ORDER[place]LES Final Result * (ABNORMAL) HCV ANTIBODY SCREEN W/ REFLEX (04/23/2024 8:44 AM EDT) Hep C Ab Reactive( A) Non-React roberta 04/23/2024 8:01 PM EDT [facility] Comment:Weakly Reactive. Pre sumptive evidence of antibodies to HCV, however nonspecific (false positive) results may occur in this range. Supplemental confirmatory testing (HCV RNA QUANT) will be performed. Blood VENOUS BLOOD / Unknown Venipuncture / Unknown 04/23/2024 8:44 AM EDT 04/23/2024 8:44 AM EDT Lillie Abrams NP HEMATOLOGY ORDERABLES Final Result [facility] [address] [facility] , [address] [place] [phone] * MM MAMMO DIGITAL RAVEN SCREEN BILAT (04/20/2024 11:12 AM EDT) Anatomical Region Laterality Modality Breast Bilateral Mammography 04/20/2024 11:1 2 AM EDT Impressions 04/21/2024 8:05 AM EDT Negative ([id number]-3) RECOMMENDATION: Routine Screening Mammogram in 1 Year COMMENTS: Narrative 04/21/2024 8:05 AM EDT EXAM: MM MAMMO DIGITAL RAVEN SCREEN BILAT EXAM DATE: 04/20/2024 11:12 AM INDICATION: Z12.31-Encounter for screening mammogram for malignant neoplasm of cvgyol-FBA-73-CM COMPARISON STUDIES: Compared with prior studies the most recent being 2021 TISSUE DENSITY: There are scattered areas of fibroglandular density. FINDINGS: No mammographic evidence of malignancy. Procedure Note Robert Daniels MD - 04/21/2024 EXAM: MM MAMMO DIGITAL RAVEN SCREEN BILAT EXAM DATE: 04/20/2024 11:12 AM INDICATION: Z12.31-Encounter for screening mammogram for malignantneoplasm of [id number]-FQW-48-CM COMPARISON STUDIES: Compared with prior studies the most recent [id number] TISSUE DENSITY: There are scattered areas of fibroglandular density. FINDINGS: No mammographic evidence of malignancy. IMPRESSION: Negative ([id number]-[id number]-1) RECOMMENDATION: Routine Screening Mammogram in 1 Year COMMENTS: Nicholas Malik MD IM MAMMOGRAPHY ORDERABLES Fin al Result from Last 3 Months or Most Recently Relevant to Health Maintenance Insurance [employer] Immunity Project [facility] [place] [address] [facility] [place] [address] [employer] Immunity Project [facility] [place] [address] Advance Directives For more information, please contact: [phone] * Full Code (Latest Code Status on File) Date Activated Date Inactivated Comments 02/15/2023 11:03 PM 02/16/2023 8:50 PM * Full Code Date Activated Date Inactivated Comments 02/15/2023 7:12 PM 02/15/2023 11:03 PM * Full Code Date Activated Date Inactivated Comments 07/25/2019 10:37 PM 07/27/2019 4:29 PM * Full Code Date Activated Date Inactivated Comments 06/27/2019 9:08 AM 06/28/2019 3:22 PM * Full Code Date Activated Date Inactivated Comments 07/09/2017 5:52 PM 07/10/2017 7:24 PM
--- OUTSIDE RECORDS SUMMARY | 2025-07-26 08:23 | XMS_ITS | Encounter Summary ---
Author Organization [facility] Address [address] [place] [address] Care Team Providers Care Buggy Driver Name Role Phone Nicholas Malik MD Primary Care Provider [phone] Encounter Details Date Type Department Care Team (Late st Contact Info) Description 07/06/2025 Telephone [facility] [address] [place] [address] Murtaza Warner MD [address] [place], [place] [id number] Social History Tobacco Use Types Packs/Day Years [...] Date Recorded PHQ-2 Total Score 0 04/20/2024 [facility] [place] of Occupat ional Health - Occupational Stress [...] Entry Date Author No 10/07/2022 9:07 AM HIU BarrossFabio jose, RMFabio documented in this encounter Miscellaneous Notes * Telephone Encounter - Anastacia Lehman ATC - 07/07/2025 4:57 PM EST I let pt know that Dr Warner recommends OTC an we are waiting to hear about the appeal for her ALISTAIR. * Telephone Encounter - Tresa Goff, Clerical Staff - 07/06/2025 12:59 PM EST Pt called, ALISTAIR was denied by her insurance and she would like to know what she should do if she gets worse. documented in this encounter Plan of Treatment [...] on filedocumented in this encounter Care Teams Buggy Driver Relationship Specialty Start Date End Date Nicholas Malik MD [address] [place] [address] [place] [address] PCP - General Family Medicine 01/14/23 07/19/25 documented as of this encounter
--- OUTSIDE RECORDS SUMMARY | 2025-07-26 08:23 | XMS_ITS | Clinical Summary ---
Author Organization [facility] Address [address] [place] [id number] Care Team Providers Care Multiple Resaw Operator Name Role Phone Tyson Malik MD Primary Care Provider [phone] Allergies Active Allergy Reactions Criticality Noted Date Comments Aspirin Rash 09/11/2023 GERD Codeine Hives 09/11/2023 Nsaids (Non-Steroidal Anti-I nflammatory Drug) 09/11/2023 GERD Tramadol 09/11/2023 GERD Medications albuterol (PROVENTIL) 2.5 mg /3 mL (0.083 %) nebulization Take 2.5 mg by inhalation every 4 hours as needed. 3 Active atorvastatin (LIPITOR) 20 mg Tablet Take 20 mg by mouth daily. 3 Active pantoprazole (PROTONIX) 40 mg Tablet, Delayed Release (E.C.) Take 40 mg by mouth daily. Take dos 3 Active umeclidinium-zaki nteroL (Anoro Ellipta) 62.5-25 mcg/actuation Disk with Device Take 1 Puff by inhalation daily. Active valsartan (DIOVAN) 160 mg Tablet Take 160 mg by mouth daily. Active docusate sodium (COLACE) 100 mg capsule Take 1 Capsule (100 mg) by mouth 2 times daily as needed for Constipation. 30 Capsule 09/19/2023 4:40 PM EST 4 Active Active Problems Problem Noted Date Diagnosed Date Primary osteoarthritis of left knee 09/11/2023 Family History Medical History Relation Name Comments Heart Problems Brother Heart Problems Father Heart Problems Paternal Grandfather Heart Problems Paternal Uncle Anesthesia Complications Neg Hx Relation Name Status Comments Brother Father Paternal Grandfather Paternal Uncle Social History Tobacco Use Types Packs/Day Years Used Date Smoking Tobacco: Former Cigarettes 0.5 53 0 09/12/1970 - 09/12/2023 Smokeless Tobacco: Never Alcohol Use Standard Drinks/Week Comments Not Currently 0 (1 standard drink = 0.6 oz pur e alcohol) Comments Unknown Sex and Gender Information Value Date Recorded Sex Assigned at Not on file Legal Sex Female 3:15 PM EST Gender Identity Not on file Sexual Orientation Not on file Last Filed Vital Signs Vital Sign Reading Time Taken Comments Blood Pressure 152/83 09/19/2023 6:00 PM EST Pulse 66 09/19/2023 6:00 PM EST Temperature 36.9 C (98.5 F) 09/19/2023 6:00 PM EST Respiratory Rate 20 09/19/2023 6:00 PM EST Oxygen Saturation 95% 09/19/2023 6:00 PM EST Inhaled Oxygen Concentration - - Weight 114.3 kg (251 lb 15.8 oz) 09/19/2023 1:29 PM EST Height 162.6 cm (5' 4 ) 09/12/2023 9:48 AM EST Body Mass Index 43.25 09/12/2023 9:48 AM EST Plan of Treatment Not on file Medical Devices Implanted Type Area Store Keeper Device Identifier Shelf Expiration Date Model / Serial / Lot Simplex Hv Full Dose Us - [id number] Implanted:Qty: 1 on 09/19/2023 by Everton Majano MD at [facility] Left: Knee * ARELIS [id number] 10/29/2024 6194-1-001 / / [id number] Attune Tib Base Affx Bear Sz 5 - [id number] Implanted:Qty: 1 on 09/19/2023 by Everton Majano MD at [facility] Left: Knee BRET \T\ [employer] [id number] 07/31/2032 [id number] / / [id number] Attune Fem Pcr Sz 5 Lt Cmtls - [id number] Implanted:Qty: 1 on 09/19/2023 by Everton Majano MD at [facility] Left: Knee BRET \T[employer] [id number] 10/01/2032 [id number] / / [id number] Attune Patella Medialized Anatomic 32mm Cemented Aox - [id number] Implanted:Qty: 1 on 09/19/2023 by Everton Majano MD at [facility] Left: Knee * J \T\ J DEPUY [id number] 07/01/2028 [id number] / / [id number] Attune Knee System Tibial Insert Fixed Bearing Medial Stabilized Implanted:Qty: 1 on 09/19/2023 by Everton Majano MD at [facility] Left: Knee [id number] 07/01/2031 1518-20-506 / / [id number] Insert Attune Fb Ms Aox Upchrg - [id number] Implanted:Qty: 1 on 09/19/2023 by Everton Majano MD at [facility] Left: Knee BRET \T\ [employer] [id number] / / Adv Pat Angelina Upchrg - [id number] Implanted:Qty: 1 on 09/19/2023 by Everton Majano MD at [facility] Left: Knee BRET \T\ [employer] [id number] / / Knee Attune Fb Por Dome Pat - [id number] Implanted:Qty: 1 on 09/19/2023 by Everton Majano MD at [facility] Left: Knee BRET \T[employer] [id number] / / Insurance #[address] [place] [address] [employer] [facility] MEDICAID Care Teams Multiple Resaw Operator Relationship Specialty Start Date End Date Tyson Malik MD [address] [place] [address] PCP - General Internal Medicine 09/19/23
== END 2025-07-25 23:59 ==
LOC: LAB.DROPOF 07-26 08:19
PROVIDERS: PCP Family Medicine; Visit Provider Family Medicine
DX: E55.9 Vitamin D deficiency, unspecified (principal); E78.5 Hyperlipidemia, unspecified; I10 Essential (primary) hypertension
CPT/HCPCS: 80053; 80061; 82306; 83036; 84436; 84443; 85025